=== PATIENT | female | born 1985 | race Caucasian/White ===

== ENCOUNTER 2017-09-27 10:10 | Observation (INO) ==
[2017-09-27] MEDS ORDERED: OXYCODONE Oral CONC 10 MG/0.5 ML ORAL.SYG SL PRN ×2 (13:08)
[2017-09-27] MEDS ORDERED: Ondansetron 4 MG/2 ML VIAL IVP PRN (13:08)
[2017-09-27] MEDS ORDERED: *HR* Promethazine 25 MG/ML VIAL IVP PRN (13:08)
[2017-09-27] MEDS ORDERED: 0.9 % Sodium Chloride 1,000 ML IVC SCH (13:15)
[2017-09-27] MEDS ORDERED: Pantoprazole 40 MG VIAL IVP SCH (13:15)
--- NOTE | 2017-09-27 14:11 | General Surg History&Physical ---
<Sari Lewis E - Last Filed: 09/27/17 15:06> Date of Encounter: 09/27/17 Time of Encounter: 15:06 Assessment and Plan (1) Acute cholecystitis Current Visit: No Status: Acute NPO Laproscopic cholecystectomy scheduled for this evening Patient was advised on procedure, risks and benefits, and common complications of this surgery. Patient agreed to surgery and consent was signed. IV fluids: 0.9% NS 125mls/hour Zofran and/or phenergan for nausea and vomiting Pain medication as needed Protonix 40mg daily Supportive care The assessment and plan as outlined above was discussed with the patient and/or family members who expressed understanding and agreement. All questions were answered. History of Present Illness Chief complaint: abdominal pain HPI: Ms. Herrmann is a 32 year old female who was seen at [place] ED with complaint of epigastric pain and nausea. After ED consulted with Dr. Ortiz patient was allowed to leave to take her daughter home and is to report to [facility] for laproscopic cholecysectomy today. Was advised to be NPO. Patient states that she started having some sharp central chest pain on Wednesday. It would wax and wane but then it became constant this morning at 3 AM. She had tried to take a Zantac on Wednesday for it. That this did not help any. She had nausea but no vomiting. Denies fevers chills. Bowel movement was yesterday and she is still passing gas without trouble. On 2015 she had this same sharp epigastric pain that she was , and she was told that they would not do anything about it while she was , she never had it again until this past Wednesday. She states the Toradol that she was given in the ED helped her pain immensely. History of and bilateral tubal ligation, ultrasonic shockwave for nephrolithiasis. Denies any other medical history. Current every day smoker, denies alcohol or drug use. LMP current. Past Med Surg Social Fam HX - Past Medical History Medical history: kidney stones Psychiatric history: anxiety - Past Surgical History Surgical History: Additional surgical history: tubal, [id number] - Social History Smoking Status: Current every day smoker Packs per day: 1/2pack/day Smokeless Tobacco Status: No Alcohol use: none Drug use: none - Family History Mother Adopted: No Living Status: Still Living Hx Family Cardiac Disorders: Yes Hx Family Respiratory Disorders: No Hx Family Cancer: No Hx Family GI Disorders: No Hx Family Endocrine Disorder: No Hx Family Neuromuscular Disorders: No Hx Family Neurologic Disorders: No Hx Family HEENT Disorders: No Hx Family Autoimmune Disorders: No Medications and Allergies No Known Home Drugs 09/27/17 [History] 3 Allergy/AdvReac Type Severity Reaction Status Date / Time No Known Allergies Allergy Verified 09/27/17 07:36 Review of Systems All systems PM: The remainder of the systems were reviewed and are negative - Constitutional as per HPI - Cardiovascular chest pain (Central, radiating to her back.), dyspnea (Due to pain), no irregular heart rhythm - Respiratory no cough, no wheezing, no chest congestion - Gastrointestinal abdominal pain, heartburn, nausea, no diarrhea, no vomiting General Surgery Exam - General physical appearance well developed, well nourished, no distress - Eyes PERRL, normal ocular movement - ENT normal nares, normal mucosa - Neck no masses, trachea midline, no venous distension - Respiratory normal expansion, normal respiratory effort, clear to auscultation - Cardiovascular Cardiovascular exam: Present: RRR, no murmurs/rubs/gallops - Abdomen Abdomen general surgery: Present: bowel sounds present, soft, tender Abdominal Tenderness: Present: RUQ - Musculoskeletal Present: normal posture - Psychiatric Psychiatric general surgery: Present: appropriate, oriented to person, oriented to place, oriented to time Results - Labs All other labs normal. <Handy Ortiz - Last Filed: 09/27/17 15:59> Date of Encounter: 09/27/17 History of Present Illness HPI: Ms. Herrmann is a 32 year old female Review of Systems All systems PM: The remainder of the systems were reviewed and are negative General Surgery Exam Initial Vital Signs Temp Pulse Resp BP Pulse Ox 97.9 F 54 16 112/74 97 09/27/17 14:41 09/27/17 14:41 09/27/17 14:41 09/27/17 14:41 09/27/17 14:41 Results - Labs All other labs normal. - Attending Attestation I examined this patient and my medical decision-making was reviewed with the Resident Physician. I agree with the documented findings, disposition and treatment plan as described except to the extent set forth below. The patient is seen and evaluated after arrival from [place] emergency room. She has had several episodes of severe right upper quadrant pain. She has CAT scan evidence of acute cholecystitis. She has received IV antibiotic and now presents for urgent laparoscopic cholecystectomy. I discussed the risks and benefits with her including bleeding, infection, postoperative bile leak, and common bile duct injury. She understands and wishes to proceed. Handy Ortiz MD FACS
[2017-09-27] MEDS: Ipratropium/Albuterol Neb 3 ML IH SCH ×3 (16:18→23:27)
--- NOTE | 2017-09-27 16:34 | Anesthesia Evaluation PreOp ---
Date of Encounter: 09/27/17 Time of Encounter: 16:32 - Past History Planned Operation: Lap Anne Cardiac History: Denies any Significant Hx Pulmonary History: Denies Any Significant HX LAB MANAGER History: Other (Anxiety) Other Medical History: Denies Any Significant HX Anesthesia History: No Prior Anesthetic Complications, Past Anesthesia (C- section x 3, BTL, ESWL) Alcohol Use: none Drug use: none Medications and Allergies No Known Home Drugs 09/27/17 [History] 3 Allergy/AdvReac Type Severity Reaction Status Date / Time No Known Allergies Allergy Verified 09/27/17 07:36 - Meds/Allergy Pre-op Review Medications Reviewed: Yes Allergies Reviewed: Yes Beta Blockers on Current Med List: No Anesthesia Results - Labs Laboratory Tests 09/27/17 09/27/17 07:52 07:52 WBC 15.1 H Hgb 14.1 Hct 41.2 Plt Count 293 Sodium 137 Potassium 4.2 Chloride 106 Carbon Dioxide 25 BUN 16 Est GFR (Non-Af Amer) > 60 - Imaging EKG: image reviewed Anesthesia Exam Vital Signs/O2 Sat/Glucose, Most Current Temp Pulse Resp BP Pulse Ox 09/27/17 14:41 97.9 F 54 16 112/74 97 Height: 5'4" Weight: 148# BMI = 26 NPO (# of Hours): MNOc Pain Scale Used: Numeric (1 - 10) - HEENT Pupil (Motor): Pupils equal, EOMI Mallampati: II Teeth: Normal (pt admits to slightly loosened lower teeth) Oral Opening: Greater than 3 - LAB MANAGER LOC: Oriented LAB MANAGER Motor: Normal RUE, Normal LUE, Normal RLE, Normal LLE, Normal Face LAB MANAGER Sensory: Normal: RUE, LUE, RLE, LLE, Face - Cardiac Rhythm: Regular Murmur: None - Pulmonary Breath Sounds: bilateral Clear Respiratory Effort: Symmetrical Anesthesia Assess/Plan ASA Score: 2 Modified [place] Scale for Level of Consciousness: Cooperative, oriented, and tranquil Anesthetic Plan: General Monitoring Plan: Standard Monitors Recovery Plan: PACU Anes Supervising Prov Stmt: Pt seen/evaluated, R&B discussed, questions answered and consent obtained. Bhupendra Potter MD
[2017-09-27] MEDS ORDERED: CefOXitin 1,000 MG VIAL ONE (16:41)
[2017-09-27] MEDS ORDERED: Isovue-300 50 ML VIAL IVP ONE (16:50)
[2017-09-27] MEDS: Piperacillin/Tazobactam 3.375 GM in 0.9 % Sodium Chloride Mini Bag 100 ML IVPB SCH (16:58)
[2017-09-27] MEDS ORDERED: *HR* FentaNYL (PF) 100 MCG/2 ML VIAL ONE ×2 (17:18→18:36)
[2017-09-27] MEDS ORDERED: Lidocaine -MPF 2% 2 ML VIAL ONE (17:18)
[2017-09-27] MEDS ORDERED: *HR* Midazolam HCl 2 MG/2 ML VIAL ONE (17:18)
[2017-09-27] MEDS ORDERED: *HR* Rocuronium Bromide 50 MG/5 ML VIAL ONE (17:18)
[2017-09-27] MEDS ORDERED: *HR* Succinylcholine 200 MG/10 ML VIAL IVP ONE (17:18)
[2017-09-27] MEDS ORDERED: *HR* Propofol 200 MG/20 ML VIAL IVP ONE (17:18)
[2017-09-27] MEDS ORDERED: Neostigmine Methylsulfate 3 MG/3 ML SYRINGE ONE (17:20)
[2017-09-27] MEDS ORDERED: Ondansetron 4 MG/2 ML VIAL ONE (17:20)
[2017-09-27] MEDS ORDERED: Dexamethasone 4 MG/ML VIAL ONE (17:20)
[2017-09-27] MEDS ORDERED: *HR* OxyCODONE Immed Rel 5 MG TABLET PO PRN (17:27)
--- NOTE | 2017-09-27 18:19 | Operative Note ---
Date of procedure: 09/27/17 Pre-op diagnosis: Acute cholecystitis Post-op diagnosis: other (#1 acute cholecystitis #2 cholelithiasis #3 choledocholithiasis) Procedure: Laparoscopic cholecystectomy, cholangiogram Anesthesia: JAZMINEA Surgeon: Handy Ortiz Was there an mechanic's assistant present: Yes [employer]: Rosa Jenkins Estimated blood loss (cc): 75 Specimen: Gallbladder and contents Condition: stable Disposition: PACU Procedure in Detail: Laparoscopic cholecystectomy and intraoperative cholangiogram Operative procedure after informed consent and appropriate patient identification timeout the patient was taken to the major operating suite and placed supine position given adequate general endotracheal anesthesia the abdomen is prepped and draped in sterile fashion utilizing ChloraPrep standard draping techniques timeout was taken patient is identified. I made a vertical midline incision below the umbilicus dissected down to level of fascia there are 2 traction stitches placed in the abdominal cavity was entered visually. A Myles trocar was placed in the abdomen and the abdomen was insufflated to 15 mmHg pressure CO2 the gallbladder was visualized. A placement 11 port in the subxiphoid area and 2 5 mm ports in the subcostal area. The gallbladder was grasped and elevated. A variety of blunt and sharp dissection techniques were used to isolate the cystic duct and cystic artery. The cystic artery was controlled with 2 surgical clips proximally and one distally and it was divided I placed a surgical clip on the neck the gallbladder and obtained an intraoperative cholangiogram using 10 mL of Isovue. Intraoperative cholangiogram demonstrated a small distal common bile duct stone with free flow into the duodenum and no evidence of bile duct obstruction. Cholangiogram findings confirmed by radiology The cholangiocatheter was removed and the cystic duct was controlled with 2 surgical clips proximally and was divided the gallbladder was removed from the gallbladder fossae using electrocautery. I encountered multiple branches of the cystic artery. The dominant branch was the highest on the gallbladder and was divided prematurely with 75 mL blood loss. This was easily controlled with surgical clips. The gallbladder was removed through the #11 port site using a specimen bag. I replaced the #11 port and irrigated with copious amounts of antibiotic containing solution. There is no evidence of bleeding or bile leak. All trochars were removed. Fascia was closed with 0 Vicryl skin with 2-0 and 4-0 Vicryl She tolerated the procedure well and was transferred to recovery in stable condition
[2017-09-27] MEDS ORDERED: *HR* Meperidine 25 MG/ML SYRINGE ONE (18:32)
[2017-09-27] MEDS: *HR* Promethazine 25 MG/ML VIAL IVP PRN ×2 (18:37→18:47)
[2017-09-27] MEDS: *HR* FentaNYL (PF) 100 MCG/2 ML VIAL IVP PRN ×2 (18:39→19:03)
[2017-09-27] MEDS ORDERED: Ringers Solution, Lactated 1,000 ML ONE (18:42)
[2017-09-27] MEDS ORDERED: *HR* Meperidine 25 MG/ML SYRINGE IVP SCH (18:45)
--- NOTE | 2017-09-27 19:13 | Anesthesia Evaluation Post Op ---
Date of Encounter: 09/27/17 Time of Encounter: 19:12 - Vital Signs Vital Signs: Vital Signs/O2 Sat, Most Current Temp Pulse Resp BP Pulse Ox 98.3 F 55 16 133/81 97 09/27/17 18:55 09/27/17 19:05 09/27/17 19:05 09/27/17 19:05 09/27/17 19:05 - Lungs Lungs: Clear Ascult./Percussion - Airway Airway: Non-obstructed - Cardiovascular Regular Rate - Mental Status Mental Status: Alert & Oriented, Answers Appropriately - Pain Pain Scale: 0 Pain Scale used: Numeric (1 - 10) - Nausea Vomiting Nausea Vomiting: Not Present - Hydration Hydration: Ice chips, Has not voided - Discharge PostOp Status: Transfer Patient to floor
[2017-09-28] MEDS: Piperacillin/Tazobactam 3.375 GM in 0.9 % Sodium Chloride Mini Bag 100 ML IVPB SCH ×3 (00:15→18:39)
[2017-09-28] MEDS: Ipratropium/Albuterol Neb 3 ML IH SCH ×6 (03:40→23:14)
[2017-09-28 05:54] LABS: Basophils # 0.1 K/mcL (0.0-0.2); Basophils % 0.3 %; Hematocrit 40.4 % (35.3-44.9); Hemoglobin 13.6 g/dL (11.5-15.4); Immature Granulocytes % 0.4 % (0-4); Lymphocytes # 1.3 K/mcL (0.6-4.6); Mean Corpuscular HGB Conc 33.7 g/dL (31.6-35.5); Mean Platelet Volume 10.9 fL (9.4-12.4); Monocytes # 0.8 K/mcL (0.0-1.3); Monocytes % 4.3 %; Platelet Count 238 K/mcL (140-400); Red Blood Count 4.39 M/mcL (3.82-4.97); Red Cell Distribution Width 13.2 % (11.5-14.5)
[2017-09-28] MEDS ORDERED: *HR* Promethazine 25 MG/ML VIAL IVP PRN (05:58)
[2017-09-28] MEDS ORDERED: Ondansetron 4 MG/2 ML VIAL IVP PRN (05:58)
[2017-09-28 06:11] LABS: BUN/Creatinine Ratio 13 (6-26); Blood Urea Nitrogen 10 mg/dL (6-20); Calcium 8.6 mg/dL (8.6-10.3); Carbon Dioxide 23 mEq/L (23-29); Chloride 109 mEq/L (98-107); Glucose 135 mg/dL (70-105); Osmolality,Calculated 285 (280-300); Potassium 4.4 mEq/L (3.5-5.1); Sodium 137 mEq/L (136-145); eGFR For Non-African Americans > 60 (> 60)
[2017-09-28] MEDS: OXYCODONE Oral CONC 10 MG/0.5 ML ORAL.SYG SL PRN ×3 (06:37→20:10)
[2017-09-28] MEDS: Pantoprazole 40 MG VIAL IVP SCH (06:37)
[2017-09-28] MEDS: 0.9 % Sodium Chloride 1,000 ML IVC SCH ×2 (06:46→20:13)
--- NOTE | 2017-09-28 08:30 | Discharge Summary ---
<Sari Lewis E - Last Filed: 09/29/17 07:56> Orders not resulted at time of discharge: Pending orders 09/27/17 18:02 Surgical Pathology [PTH] Routine 09/28/17 08:27 Hepatic Panel Stat 09/29/17 04:00 LFTs [Hepatic Panel] AM 0400 Date of Encounter: 09/29/17 Time of Encounter: 08:34 - Discharge Diagnosis (1) Acute cholecystitis Priority: Primary Status: Acute Comments: Date of procedure: 09/27/17 Pre-op diagnosis: Acute cholecystitis Post-op diagnosis: other (#1 acute cholecystitis #2 cholelithiasis #3 choledocholithiasis) Procedure: Laparoscopic cholecystectomy, cholangiogram Anesthesia: [facility] Surgeon: Handy Ortiz Patient tolerated procedure well, Intraoperative Cholangiogram demonstrated a small distal common bile duct stone with free flow into the duodenum and no evidence of bile duct obstruction. Dr. Howe was consulted on this due to possible common bile duct stone Surgery was advised to watch liver function tests overnight. There are function tests within normal limits Patient will be discharged today. General Surgery Exam Initial Vital Signs Temp Pulse Resp BP Pulse Ox 97.9 F 54 16 112/74 97 09/27/17 14:41 09/27/17 14:41 09/27/17 14:41 09/27/17 14:41 09/27/17 14:41 - General physical appearance well developed, well nourished, no distress - Respiratory normal expansion, normal respiratory effort, clear to auscultation - Cardiovascular Cardiovascular exam: Present: RRR, no murmurs/rubs/gallops - Abdomen Abdomen general surgery: Present: bowel sounds present, soft, tender Abdominal Tenderness: Present: RUQ - Incision Incision: Present: clean and dry, intact - Musculoskeletal Present: normal posture - Psychiatric Psychiatric general surgery: Present: oriented to person, oriented to place, oriented to time - Hospital Course Hospital course: Ms. Herrmann is a 32 year old female who presented to [place] ED yesterday with epigastric pain and nausea. CT showed Cholelithiasis with gallbladder wall thickening an dpericholecystic fluid. The ED contacted Dr. Ortiz who reviewed the CT and advised the patient be transferred to [facility] for laproscopic cholecystectomy. Patient took her daughter home and then arrived at [facility]. Laproscopic Cholecystectomy with intraoperative Cholangiogram where completed. Intraoperative cholangiogram showed a small common bile duct stone that was non-obstructing. GI saw the patient and advised her to stay 1 more night trending liver function tests. His liver function tests came back within normal limits today. Patient tolerated the surgery well. This morning she still has some RUQ pain less than yesterday. - Time Spent with Patient Total time spent providing and/or coordinating discharge services: - Discharge Medications Prescriptions: OxyCODONE/APAP 5/325 [Percocet 5/325 MG] 1 each PO Q8HR PRN 5 Days #15 tablet PRN Reason: Moderate Pain Home Medications: OxyCODONE/APAP 5/325 [Percocet 5/325 MG] 1 each PO Q8HR PRN 5 Days #15 tablet [Rx] Allergies/Adverse Reactions: 3 Allergy/AdvReac Type Severity Reaction Status Date / Time No Known Allergies Allergy Verified 09/27/17 07:36 Date of admission: 09/27/17 14:32 Primary care physician: PCP NONE Discharging clinician: Handy Ortiz Anticipated date of discharge: 09/28/17 Labs on day of discharge: Labs from last 24 hours 09/28/17 09/28/17 09/28/17 05:55 05:37 05:37 WBC 18.2 H RBC 4.39 Hgb 13.6 Hct 40.4 MCV 92.0 MCH 31.0 MCHC 33.7 RDW 13.2 Plt Count 238 MPV 10.9 Immature Gran % 0.4 Seg Neutrophils % 88.0 Lymphocytes % 7.0 Monocytes % 4.3 Eosinophils % 0.0 Basophils % 0.3 Neutrophils # 16.0 H Lymphocytes # 1.3 Monocytes # 0.8 Eosinophils # 0.0 Basophils # 0.1 Sodium 137 Potassium 4.4 Chloride 109 H Carbon Dioxide 23 BUN 10 Creatinine 0.76 Est GFR ( Amer) > 60 Est GFR (Non-Af Amer) > 60 BUN/Creatinine Ratio 13 Glucose 135 H POC Glucose 114 H Calculated Osmolality 285 Calcium 8.6 - Impressions ITS Impressions Cholangiogram,Operative 09/27/17 17:25 IMPRESSION: Filling defect in the distal common bile duct likely representing a small stone. D/ / 09/27/2017 18:05:38 Clifton Mckeon MD / [email or web address] Interpreting Provider: Clifton Mckeon MD - Patient Status Disposition: Home, Self-Care Condition: Good Overall status at discharge: patient is progressing back to baseline - Discharge Instructions Instructions: Laparoscopic Cholecystectomy (DC) Follow Up With: Handy Ortiz MD [Partnered Physician] - 10/12/17 10:35 am Ish Ramirez MD [Partnered Physician] - (Web request entered, the office will call you with date and time of appt. Thank you) Forms: Inpatient Work/School Release Additional Instructions: 1. No pushing, pulling, or lifting greater than 15 lbs for 2-4 weeks (depending upon procedure). 2. You may shower beginning today, but no tub baths, soaking, or swimming for 2 weeks. 3. You may resume driving when you are off narcotics and are safe to react in a car. 4. Take ibuprofen every 8 hours for discomfort. If this does not relieve discomfort, you may take the as needed Percocet. Take narcotics as directed. Do not take more narcotics then directed and do not share your narcotics with any other person. Do not drink alcohol while on narcotics. 5. Take stool softeners (Colace) or a water based laxative (Miralax) while taking narcotics. You may hold for loose stools. 6. Report any fevers greater than 100.5F, increase abdominal discomfort, drainage that looks like pus, increased redness or pain at the surgical site, or any vomiting. 7. Report any pain in the calves, shortness of breath, or rapid heartbeat. 8. Follow-up in the office as directed. - Diet and Activity Activity: resume usual activities as tolerated Diet: advance to your usual diet <Handy Ortiz - Last Filed: 09/29/17 15:06> Date of Encounter: 09/29/17 General Surgery Exam Initial Vital Signs Temp Pulse Resp BP Pulse Ox 97.9 F 54 16 112/74 97 09/27/17 14:41 09/27/17 14:41 09/27/17 14:41 09/27/17 14:41 09/27/17 14:41 - Hospital Course Hospital course: Ms. Herrmann is a 32 year old female - Time Spent with Patient Total time spent providing and/or coordinating discharge services: Date of admission: 09/27/17 14:32 Primary care physician: PCP NONE Consults: 09/28/17 10:14 Consult to Gastroenterology [CONS] Routine Consulting Provider: Josefina Vitale Reason for Consult: Common bile duct stone Time Notified: 10:15 Call Completed: Yes Labs on day of discharge: Labs from last 24 hours 09/29/17 09/29/17 09/29/17 06:22 06:22 06:22 WBC 11.8 H RBC 3.79 L Hgb 11.7 D Hct 35.4 MCV 93.4 MCH 30.9 MCHC 33.1 RDW 13.6 Plt Count 219 MPV 11.1 Immature Gran % 0.3 Seg Neutrophils % 58.6 Lymphocytes % 29.1 Monocytes % 7.8 Eosinophils % 3.7 Basophils % 0.5 Neutrophils # 6.9 Lymphocytes # 3.4 Monocytes # 0.9 Eosinophils # 0.4 Basophils # 0.1 Sodium 140 Potassium 4.0 Chloride 110 H Carbon Dioxide 25 BUN 8 Creatinine 0.67 Est GFR ( Amer) > 60 Est GFR (Non-Af Amer) > 60 BUN/Creatinine Ratio 12 Glucose 98 POC Glucose Calculated Osmolality 288 Calcium 8.1 L Total Bilirubin 0.5 Direct Bilirubin 0.1 Indirect Bilirubin 0.4 AST 20 ALT 39 Alkaline Phosphatase 36 Serum Total Protein 5.6 L Albumin 3.4 L Globulin 2.2 L Albumin/Globulin Ratio 1.5 09/29/17 09/28/17 05:23 23:09 WBC RBC Hgb Hct MCV MCH MCHC RDW Plt Count MPV Immature Gran % Seg Neutrophils % Lymphocytes % Monocytes % Eosinophils % Basophils % Neutrophils # Lymphocytes # Monocytes # Eosinophils # Basophils # Sodium Potassium Chloride Carbon Dioxide BUN Creatinine Est GFR ( Amer) Est GFR (Non-Af Amer) BUN/Creatinine Ratio Glucose POC Glucose 93 104 H Calculated Osmolality Calcium Total Bilirubin Direct Bilirubin Indirect Bilirubin AST ALT Alkaline Phosphatase Serum Total Protein Albumin Globulin Albumin/Globulin Ratio - Impressions ITS Impressions Cholangiogram,Operative 09/27/17 17:25 IMPRESSION: Filling defect in the distal common bile duct likely representing a small stone. D/ / 09/27/2017 18:05:38 Clifton Mckeon MD / [facility] Interpreting Provider: Clifton Mckeon MD - Attending Attestation I examined this patient and my medical decision-making was reviewed with the Resident Physician. I agree with the documented findings, disposition and treatment plan as described except to the extent set forth below. The patient was seen and evaluated on morning rounds with resident. The patient 's care is discussed with her repeat chief. If her liver function tests are normal today she may be discharged. She will follow-up with gastroenterology and with me in the outpatient clinic Handy Ortiz MD FACS
[2017-09-28 08:44] LABS: Alanine Aminotransferase 45 Units/L (7-52); Albumin 3.7 g/dL (3.5-5.7); Albumin/Globulin Ratio 1.5 (1.1-2.2); Alkaline Phosphatase 45 Units/L (34-104); Aspartate Amino Transferase 39 Units/L (13-39); Bilirubin,Direct 0.1 mg/dL (0.0-0.2); Bilirubin,Indirect 0.7 mg/dL (0.0-1.2); Bilirubin,Total 0.8 mg/dL (0.3-1.0); Globulin 2.4 g/dL (2.4-3.5); Total Protein 6.1 g/dL (6.4-8.9)
--- NOTE | 2017-09-28 10:56 | Gastroenterology Consult Note ---
<Fisher,Jesus Alberto Mead - Last Filed: 09/28/17 10:53> Date of Encounter: 09/28/17 Time of Encounter: 10:20 - Assessment and plan (1) Common bile duct stone Current Visit: Yes Status: Acute Assessment and plan: Lap kaylee with IOC completed 09/27 and IOC revealed a small distal common bile duct stone with free flow into the duodenum and no evidence of bile duct obstruction. Dr. Ramirez will review images and discuss findings with Dr. Ortiz to determine need for ERCP. LNTs wnl. - Time Spent With Patient Total time spent is greater than 50% in coordination of care (as documented) at patient's floor/unit and/or counseling patient: GI History of Present Illness - Data of Consult Patient: new to practice Consult date: 09/28/17 Requesting Physician: Handy Ortiz MD - Consult Narrative Reason for consult: CBD stone History of present illness: Ms. Herrmann is a 32 year old female with PMHx of kidney stones who presented to [place] ED with epigastric pain and nausea. CT A/P on 09/27 showed cholelithiasis with gallbladder wall thickening and pericholecystic fluid. Lap kaylee with IOC completed 09/27 and IOC revealed a small distal common bile duct stone with free flow into the duodenum and no evidence of bile duct obstruction. We were consulted to evaluate the CBD stone. LFTs are within normal limits. Procedures: None NSAIDs: None Anticoagulation: None Past Med Surg Social Fam HX - Past Medical History Medical history: kidney stones Psychiatric history: anxiety - Past Surgical History Surgical History: Additional surgical history: tubal, [id number] - Social History Smoking Status: Current every day smoker Packs per day: 1/2pack/day Smokeless Tobacco Status: No Alcohol use: none Drug use: none - Family History Mother Adopted: No Living Status: Still Living Hx Family Cardiac Disorders: Yes Hx Family Respiratory Disorders: No Hx Family Cancer: No Hx Family GI Disorders: No Hx Family Endocrine Disorder: No Hx Family Neuromuscular Disorders: No Hx Family Neurologic Disorders: No Hx Family HEENT Disorders: No Hx Family Autoimmune Disorders: No - Gastrointestinal Gastrointestinal: Present: as per HPI - Constitutional Constitutional: as per HPI - EENT Eyes: as per HPI Ears: Present: as per HPI Nose, mouth and throat: Present: as per HPI - Cardiovascular Cardiovascular ROS: Present: as per HPI - Respiratory Respiratory IM: Present: as per HPI - Genitourinary Genitourinary: Absent: change in color, Urinary frequency - Neurological ROS Neurological GI: Present: as per HPI - Hematologic/Lymphatic Hematologic/Lymphatic pediatric: Present: as per HPI - Musculoskeletal Musculoskeletal ROS GI: Present: as per HPI - Integumentary Integumentary GI: Present: as per HPI - Psychiatric ROS Psychiatric GI: Present: as per HPI - Endocrine Endocrine IM: Present: as per HPI - Constitutional Vitals: Temp Pulse Resp BP Pulse Ox 97.9 F 65 15 111/69 98 09/28/17 10:41 09/28/17 10:41 09/28/17 10:41 09/28/17 10:41 09/28/17 10:41 General appearance: Present: cooperative, A&O X 3, no acute distress, answers questions appropriately - Head Head exam: Present: atraumatic, normocephalic - Eye Eye exam: Present: normal appearance, sclera anicteric - ENT ENT exam: Present: mucous membranes moist - Neck Neck exam general surgery: Present: normal inspection, trachea midline - Respiratory Respiratory exam: Present: CTAB. Absent: rales, rhonchi, wheezes - Cardiovascular Cardiovascular exam: Present: RRR, +S1, +S2 - GI/Abdominal GI/Abdominal exam: Present: soft, tenderness (s/p lap kaylee), no peritoneal signs. Absent: distended, firm, guarding Additional comments: Laparoscopic surgical sites C/D/I - Rectal Rectal exam: Present: deferred - Extremities Exam Extremities exam: Present: warm - Neurological Exam Neurological exam: Present: no focal deficits - Psychiatric Psychiatric exam: Present: normal affect, normal mood - Skin Skin exam: Present: dry, intact, normal color, warm Results - Labs CBC & Chem 7: 09/28/17 05:37 09/28/17 05:37 Labs: Last Result Calcium 8.6 mg/dL (8.6-10.3) 09/28/17 05:37 Entire Visit Hgb 13.6 g/dL (11.5-15.4) 09/28/17 05:37 Hct 40.4 % (35.3-44.9) 09/28/17 05:37 Total Bilirubin 0.8 mg/dL (0.3-1.0) 09/28/17 05:37 AST 39 Units/L (13-39) 09/28/17 05:37 ALT 45 Units/L (7-52) 09/28/17 05:37 - Impressions Impressions Cholangiogram,Operative 09/27/17 17:25 IMPRESSION: Filling defect in the distal common bile duct likely representing a small stone. D/ / 09/27/2017 18:05:38 Clifton Mckeon MD / [email or web address] Interpreting Provider: Clifton Mckeon MD Consult Discharge Plan - Plan Instructions: Laparoscopic Cholecystectomy (DC) Additional Instructions: 1. No pushing, pulling, or lifting greater than 15 lbs for 2-4 weeks (depending upon procedure). 2. You may shower beginning today, but no tub baths, soaking, or swimming for 2 weeks. 3. You may resume driving when you are off narcotics and are safe to react in a car. 4. Take ibuprofen every 8 hours for discomfort. If this does not relieve discomfort, you may take the as needed Percocet. Take narcotics as directed. Do not take more narcotics then directed and do not share your narcotics with any other person. Do not drink alcohol while on narcotics. 5. Take stool softeners (Colace) or a water based laxative (Miralax) while taking narcotics. You may hold for loose stools. 6. Report any fevers greater than 100.5F, increase abdominal discomfort, drainage that looks like pus, increased redness or pain at the surgical site, or any vomiting. 7. Report any pain in the calves, shortness of breath, or rapid heartbeat. 8. Follow-up in the office as directed. Referrals: NONE,PCP [Primary Care Provider] - <Ish Ramirez - Last Filed: 09/28/17 17:34> Date of Encounter: 09/28/17 Time of Encounter: 14:00 - Time Spent With Patient Total time spent is greater than 50% in coordination of care (as documented) at patient's floor/unit and/or counseling patient: GI History of Present Illness - Data of Consult Requesting Physician: Handy Ortiz MD - Consult Narrative History of present illness: Ms. Herrmann is a 32 year old female - Constitutional Vitals: Temp Pulse Resp BP Pulse Ox 98.6 F 86 18 118/69 98 09/28/17 14:43 09/28/17 14:43 09/28/17 16:24 09/28/17 14:43 09/28/17 16:24 Results - Labs CBC & Chem 7: 09/28/17 05:37 09/28/17 05:37 Labs: Last Result Calcium 8.6 mg/dL (8.6-10.3) 09/28/17 05:37 Entire Visit Hgb 13.6 g/dL (11.5-15.4) 09/28/17 05:37 Hct 40.4 % (35.3-44.9) 09/28/17 05:37 Total Bilirubin 0.8 mg/dL (0.3-1.0) 09/28/17 05:37 AST 39 Units/L (13-39) 09/28/17 05:37 ALT 45 Units/L (7-52) 09/28/17 05:37 - Impressions Impressions Cholangiogram,Operative 09/27/17 17:25 IMPRESSION: Filling defect in the distal common bile duct likely representing a small stone. D/ / 09/27/2017 18:05:38 Clifton Mckeon MD / [facility] Interpreting Provider: Clifton Mckeon MD - Attending Attestation I have personally performed a face to face evaluation on this patient. I have reviewed and agree with the care plan. History and Exam by me shows: Patient seen at the bedside. She is status post gallbladder surgery today with IOC showing a possible filling defect. Pain is currently controlled. Assessment: Abnormal IOC with a possible filling defect but LFTs are normal. Recommendation: We will watch LFTs if any bump in her LFTs in the morning then she will need ERCP otherwise none. Discussed with Dr. Ortiz.
[2017-09-29] MEDS: Piperacillin/Tazobactam 3.375 GM in 0.9 % Sodium Chloride Mini Bag 100 ML IVPB SCH ×2 (02:15→09:38)
[2017-09-29] MEDS: 0.9 % Sodium Chloride 1,000 ML IVC SCH ×2 (02:20→04:27)
[2017-09-29] MEDS: OXYCODONE Oral CONC 10 MG/0.5 ML ORAL.SYG SL PRN ×2 (02:36→09:35)
[2017-09-29] MEDS: Ipratropium/Albuterol Neb 3 ML IH SCH ×2 (03:58→07:44)
[2017-09-29 06:42] LABS: Basophils # 0.1 K/mcL (0.0-0.2); Basophils % 0.5 %; Eosinophils # 0.4 K/mcL (0.0-0.6); Eosinophils % 3.7 %; Hematocrit 35.4 % (35.3-44.9); Immature Granulocytes % 0.3 % (0-4); Lymphocytes # 3.4 K/mcL (0.6-4.6); Lymphocytes % 29.1 %; Mean Corpuscular HGB Conc 33.1 g/dL (31.6-35.5); Mean Corpuscular Hemoglobin 30.9 pg (28.0-33.3); Mean Corpuscular Volume 93.4 fL (83.0-100.0); Mean Platelet Volume 11.1 fL (9.4-12.4); Monocytes # 0.9 K/mcL (0.0-1.3); Monocytes % 7.8 %; Neutrophils # 6.9 K/mcL (1.6-8.9); Platelet Count 219 K/mcL (140-400); Red Blood Count 3.79 M/mcL (3.82-4.97); Red Cell Distribution Width 13.6 % (11.5-14.5); Segmented Neutrophils % 58.6 %
[2017-09-29 06:43] LABS: Hemoglobin 11.7 g/dL (11.5-15.4)
[2017-09-29] MEDS: Pantoprazole 40 MG VIAL IVP SCH (06:50)
[2017-09-29 06:59] LABS: Albumin 3.4 g/dL (3.5-5.7); Albumin/Globulin Ratio 1.5 (1.1-2.2); Bilirubin,Direct 0.1 mg/dL (0.0-0.2); Bilirubin,Indirect 0.4 mg/dL (0.0-1.2); Bilirubin,Total 0.5 mg/dL (0.3-1.0); Globulin 2.2 g/dL (2.4-3.5); Total Protein 5.6 g/dL (6.4-8.9)
[2017-09-29 07:00] LABS: BUN/Creatinine Ratio 12 (6-26); Blood Urea Nitrogen 8 mg/dL (6-20); Calcium 8.1 mg/dL (8.6-10.3); Carbon Dioxide 25 mEq/L (23-29); Chloride 110 mEq/L (98-107); Glucose 98 mg/dL (70-105); Osmolality,Calculated 288 (280-300); Sodium 140 mEq/L (136-145); eGFR For Non-African Americans > 60 (> 60)
[2017-09-29 07:04] VITALS: BP 106/71
--- NOTE | 2017-09-29 07:56 | General Surgery Progress Note ---
<Sari Lewis - Last Filed: 09/29/17 07:52> Date of Encounter: 09/28/17 Time of Encounter: 08:00 - Assessment and Plan (1) Acute cholecystitis Status: Acute Status: Acute Comments: Date of procedure: 09/27/17 Pre-op diagnosis: Acute cholecystitis Post-op diagnosis: other (#1 acute cholecystitis #2 cholelithiasis #3 choledocholithiasis) Procedure: Laparoscopic cholecystectomy, cholangiogram Anesthesia: GETA Surgeon: Handy Ortiz Patient tolerated procedure well, intraoperative cholangiogram demonstrated a small stool common bile duct stone with free flow into the duodenum and no evidence of bile duct obstruction Dr. Ortiz to speak with Dr. Howe about this finding Liver function tests ordered If liver tests normal and okay to discharge from Dr. Drake point she will be discharged later this afternoon Update: Dr. Shyam swartz for liver function test to be followed overnight. Can be discharged with follow-up to Dr.: Dr. Ortiz if these liver function tests are good. Subjective Patient reports: still having pain, flatus, no bowel movement, other (Patient is feeling some better, still having some right upper quadrant pain. She has had no bowel movement yet but has passed gas. She states that her pain is much better than yesterday.) Objective Vital Signs - Last 8 Hours Temp Pulse Resp BP Pulse Ox 09/29/17 07:44 18 97 09/29/17 07:00 98.1 F 86 16 106/71 99 09/29/17 03:47 98 F 98 15 105/67 97 Intake and Output 09/28/17 09/28/17 09/29/17 15:59 23:59 07:59 Intake Total 2180 / 2180 1080 / 1080 1000 / 1000 Output Total 600 / 600 0 / 0 Balance 1580 / 1580 1080 / 1080 1000 / 1000 Intake: IV Fluids 1100 / 1100 1000 / 1000 0.9 % Sodium Chloride 1,000 ML 1000 / 1000 1000 / 1000 @ 125 mls/hr IVC .Q8H NII Rx#: [id number] Zosyn 3.375 GM In 0.9 % Sodium 100 / 100 Chloride (Mini-Bag +) 100 ML @ 25 mls/hr IVPB Q8HR NII Rx#: [id number] Oral 1080 / 1080 1080 / 1080 0 / 0 Output: Urine 600 / 600 0 / 0 Other: Meal clears breakfast Clears # Voids 1 # Bowel Movements 0 0 Weight 68 kg Blood Glucose* 104 93 Patient Weight 09/29/17 23:59 Weight 68 kg - General physical appearance well developed, well nourished, moderate distress - Respiratory normal expansion, normal respiratory effort, clear to auscultation - Cardiovascular Cardiovascular exam: Present: RRR, no murmurs/rubs/gallops - Abdomen Abdomen: Present: bowel sounds present, soft Abdominal Tenderness: RUQ - Integumentary no rash, no growths, no abnormal pigmentation - Musculoskeletal normal posture - Psychiatric oriented to time, oriented to person, oriented to place - Labs 09/29/17 06:22 09/29/17 06:22 Diabetes panel 09/28/17 09/29/17 09/29/17 Range/Units 05:37 06:22 06:22 Sodium 137 140 (136-145) mEq/L Potassium 4.4 4.0 (3.5-5.1) mEq/L Chloride 109 H 110 H (98-107) mEq/L Carbon Dioxide 23 25 (23-29) mEq/L BUN 10 8 (6-20) mg/dL Creatinine 0.76 0.67 (0.60-1.20) mg/dL Glucose 135 H 98 (70-105) mg/dL Calcium 8.6 8.1 L (8.6-10.3) mg/dL AST 39 20 (13-39) Units/L ALT 45 39 (7-52) Units/L Alkaline Phosphatase 45 36 (34-104) Units/L Albumin 3.7 3.4 L (3.5-5.7) g/dL Calcium panel 09/28/17 09/29/17 09/29/17 Range/Units 05:37 06:22 06:22 Calcium 8.6 8.1 L (8.6-10.3) mg/dL Albumin 3.7 3.4 L (3.5-5.7) g/dL Pituitary panel 09/28/17 09/29/17 Range/Units 05:37 06:22 Sodium 137 140 (136-145) mEq/L Potassium 4.4 4.0 (3.5-5.1) mEq/L Chloride 109 H 110 H (98-107) mEq/L Carbon Dioxide 23 25 (23-29) mEq/L BUN 10 8 (6-20) mg/dL Creatinine 0.76 0.67 (0.60-1.20) mg/dL Glucose 135 H 98 (70-105) mg/dL Calcium 8.6 8.1 L (8.6-10.3) mg/dL Adrenal panel 09/28/17 09/29/17 09/29/17 Range/Units 05:37 06:22 06:22 Sodium 137 140 (136-145) mEq/L Potassium 4.4 4.0 (3.5-5.1) mEq/L Chloride 109 H 110 H (98-107) mEq/L Carbon Dioxide 23 25 (23-29) mEq/L BUN 10 8 (6-20) mg/dL Creatinine 0.76 0.67 (0.60-1.20) mg/dL Glucose 135 H 98 (70-105) mg/dL Calcium 8.6 8.1 L (8.6-10.3) mg/dL Total Bilirubin 0.8 0.5 (0.3-1.0) mg/dL AST 39 20 (13-39) Units/L ALT 45 39 (7-52) Units/L Alkaline Phosphatase 45 36 (34-104) Units/L Albumin 3.7 3.4 L (3.5-5.7) g/dL - VTE Documentation of Mechanical Device: Intermittent pneumatic compression device Consult Discharge Plan - Plan Instructions: Laparoscopic Cholecystectomy (DC) Additional Instructions: 1. No pushing, pulling, or lifting greater than 15 lbs for 2-4 weeks (depending upon procedure). 2. You may shower beginning today, but no tub baths, soaking, or swimming for 2 weeks. 3. You may resume driving when you are off narcotics and are safe to react in a car. 4. Take ibuprofen every 8 hours for discomfort. If this does not relieve discomfort, you may take the as needed Percocet. Take narcotics as directed. Do not take more narcotics then directed and do not share your narcotics with any other person. Do not drink alcohol while on narcotics. 5. Take stool softeners (Colace) or a water based laxative (Miralax) while taking narcotics. You may hold for loose stools. 6. Report any fevers greater than 100.5F, increase abdominal discomfort, drainage that looks like pus, increased redness or pain at the surgical site, or any vomiting. 7. Report any pain in the calves, shortness of breath, or rapid heartbeat. 8. Follow-up in the office as directed. Referrals: Handy Ortiz MD [Partnered Physician] - 10/12/17 10:35 am Ish Ramirez MD [Partnered Physician] - (Web request entered, the office will call you with date and time of appt. Thank you) Prescriptions: OxyCODONE/APAP 5/325 [Percocet 5/325 MG] 1 each PO Q8HR PRN 5 Days #15 tablet PRN Reason: Moderate Pain <Handy Ortiz - Last Filed: 09/29/17 15:14> Date of Encounter: 09/28/17 Objective Vital Signs - Last 8 Hours Resp Pulse Ox 09/29/17 09:00 97 09/29/17 07:44 18 97 Intake and Output 09/28/17 09/29/17 09/29/17 23:59 07:59 15:59 Intake Total 1080 / 1080 1000 / 1000 340 / 340 Output Total 0 / 0 Balance 1080 / 1080 1000 / 1000 340 / 340 Intake: IV Fluids 1000 / 1000 100 / 100 0.9 % Sodium Chloride 1,000 ML 1000 / 1000 @ 125 mls/hr IVC .Q8H NII Rx#: [id number] Zosyn 3.375 GM In 0.9 % Sodium 100 / 100 Chloride (Mini-Bag +) 100 ML @ 25 mls/hr IVPB Q8HR NII Rx#: [id number] Oral 1080 / 1080 0 / 0 240 / 240 Output: Urine 0 / 0 Other: Meal Clears Breakfast Percent of Meal Consumed 5% # Voids 1 # Bowel Movements 0 0 Weight 68 kg Blood Glucose* 104 93 Patient Weight 09/29/17 23:59 Weight 68 kg - Labs 09/29/17 06:22 09/29/17 06:22 Diabetes panel 09/29/17 09/29/17 Range/Units 06:22 06:22 Sodium 140 (136-145) mEq/L Potassium 4.0 (3.5-5.1) mEq/L Chloride 110 H (98-107) mEq/L Carbon Dioxide 25 (23-29) mEq/L BUN 8 (6-20) mg/dL Creatinine 0.67 (0.60-1.20) mg/dL Glucose 98 (70-105) mg/dL Calcium 8.1 L (8.6-10.3) mg/dL AST 20 (13-39) Units/L ALT 39 (7-52) Units/L Alkaline Phosphatase 36 (34-104) Units/L Albumin 3.4 L (3.5-5.7) g/dL Calcium panel 09/29/17 09/29/17 Range/Units 06:22 06:22 Calcium 8.1 L (8.6-10.3) mg/dL Albumin 3.4 L (3.5-5.7) g/dL Pituitary panel 09/29/17 Range/Units 06:22 Sodium 140 (136-145) mEq/L Potassium 4.0 (3.5-5.1) mEq/L Chloride 110 H (98-107) mEq/L Carbon Dioxide 25 (23-29) mEq/L BUN 8 (6-20) mg/dL Creatinine 0.67 (0.60-1.20) mg/dL Glucose 98 (70-105) mg/dL Calcium 8.1 L (8.6-10.3) mg/dL Adrenal panel 09/29/17 09/29/17 Range/Units 06:22 06:22 Sodium 140 (136-145) mEq/L Potassium 4.0 (3.5-5.1) mEq/L Chloride 110 H (98-107) mEq/L Carbon Dioxide 25 (23-29) mEq/L BUN 8 (6-20) mg/dL Creatinine 0.67 (0.60-1.20) mg/dL Glucose 98 (70-105) mg/dL Calcium 8.1 L (8.6-10.3) mg/dL Total Bilirubin 0.5 (0.3-1.0) mg/dL AST 20 (13-39) Units/L ALT 39 (7-52) Units/L Alkaline Phosphatase 36 (34-104) Units/L Albumin 3.4 L (3.5-5.7) g/dL - Attending Attestation I examined this patient and my medical decision-making was reviewed with the Resident Physician. I agree with the documented findings, disposition and treatment plan as described except to the extent set forth below. The patient is seen and evaluated on morning rounds with resident and the clinical nurse practitioner she is doing well after laparoscopic cholecystectomy. There is concern that she has common bile duct stone. Her liver function tests are normal. She is having mild discomfort through to her back which may be related to choledocholithiasis. Gastroenterology consultation will be obtained to consider ERCP Handy Ortiz MD FACS
== END 2017-09-29 11:11 | disposition home or self-care (01) ==
LOC: 3ANU
PROVIDERS: ADMIT Surgery; ATTEND Surgery